=== PATIENT | male | born 1995 | race American Indian/Alaskan Native ===

== ENCOUNTER 2018-04-08 17:26 | Emergency (ER) | payer SELFPAY ==
--- NOTE | 2018-04-08 17:45 | Emergency Department Report ---
Chief Complaint: Urogenital-Male Stated Complaint: SHARP PAINS Time Seen by Provider: 04/08/18 17:42 - HPI History of Present Illness: Pt states he was having rough intercourse 6 months ago and feels like it bent when he was entering the vaginal canal which caused immediate pain for the patient He states he has noticed a curvature to the penis since the incident no difficulty urinating having difficulty getting an erection and maintaining an erection since the inc ident he denies any discharge or urinary sx MSE complete MSE screening note: Focused history and physical exam performed. ED Disposition for MSE Condition: Stable
--- NOTE | 2018-04-08 20:06 | Emergency Department Report ---
ED Male HPI - General Chief complaint: Urogenital-Male Stated complaint: SHARP PAINS Time Seen by Provider: 04/08/18 17:42 Source: patient Mode of arrival: Ambulatory Limitations: No Limitations - History of Present Illness Initial comments: 22-year-old [place] male intima department complaining of a 6-12 month history of erectile dysfunction issues not been able to sustain a 4 erection for any length of time and also having an abnormally shaped penile and is able to obtain a partial erection. He states that this happened after he was having vigorous sex with the female on top states that she came down, causing his penis to begin in a very with an extremely painful position. He states right at That time it lost all of its integrity and has not yet been able to 2 regain his usual form to the point to where it is impairing his sexual activity. States this is start taking a toll on him mentally and emotionally 6 some assistance on correcting this problem. He has not tried any oral treatments or hormonal replacement therapy and is not follow-up with a urologist for any guidance. - Related Data Previous Rx's Medication Instructions Recorded Last Taken Type Sildenafil Citrate [Viagra] 100 mg PO ONCE #1 tablet 04/08/18 Unknown Rx Allergies Allergy/AdvReac Type Severity Reaction Status Date / Time diphenhydramine Allergy Hives Verified 04/08/18 17:27 [From [facility]] ED Review of Systems ROS: Stated complaint: SHARP PAINS Other details as noted in HPI Constitutional: denies: chills, fever Eyes: denies: eye pain, eye discharge, vision change ENT: denies: ear pain, throat pain Respiratory: denies: cough, shortness of breath, wheezing Cardiovascular: denies: chest pain, palpitations Endocrine: no symptoms reported Gastrointestinal: denies: abdominal pain, nausea, diarrhea Genitourinary: denies: urgency, dysuria Musculoskeletal: denies: back pain, joint swelling, arthralgia Skin: denies: rash, lesions Neurological: denies: headache, weakness, paresthesias Psychiatric: denies: anxiety, depression Hematological/Lymphatic: denies: easy bleeding, easy bruising ED Past Medical Hx - Past Medical History Previous Medical History?: No - Surgical History Past Surgical History?: No - Social History Smoking Status: Never Smoker Substance Use Type: None - Medications Home Medications: Home Medications Medication Instructions Recorded Confirmed Last Taken Type Sildenafil Citrate [Viagra] 100 mg PO ONCE #1 tablet 04/08/18 Unknown Rx ED Physical Exam - General Limitations: No Limitations General appearance: alert, in no apparent distress - Head Head exam: Present: atraumatic, normocephalic - Eye Eye exam: Present: normal appearance, PERRL, EOMI Pupils: Present: normal accommodation - ENT ENT exam: Present: mucous membranes moist - Neck Neck exam: Present: normal inspection - Respiratory Respiratory exam: Present: normal lung sounds bilaterally. Absent: respiratory distress - Cardiovascular Cardiovascular Exam: Present: regular rate, normal rhythm. Absent: systolic murmur, diastolic murmur, rubs, gallop - GI/Abdominal GI/Abdominal exam: Present: soft, normal bowel sounds - Rectal Rectal exam: Present: deferred - Extremities Exam Extremities exam: Present: normal inspection - Back Exam Back exam: Present: normal inspection - Neurological Exam Neurological exam: Present: alert, oriented X3 - Psychiatric Psychiatric exam: Present: normal affect, normal mood - Skin Skin exam: Present: warm, dry, intact, normal color. Absent: rash ED Course Vital Signs 04/08/18 17:43 Temperature 97.9 F Pulse Rate 88 Respiratory 16 Rate Blood Pressure 132/81 O2 Sat by Pulse 98 Oximetry Critical care attestation.: If time is entered above; I have spent that time in minutes in the direct care of this critically ill patient, excluding procedure time. ED Disposition Clinical Impression: Erectile disorder, generalized, mild Disposition: DC-01 TO HOME OR SELFCARE Is pt being admited?: No Does the pt Need Aspirin: No Condition: Stable Instructions: Erectile Dysfunction (ED) Additional Instructions: Most men will experience problems getting or keeping an erection at some point during adulthood, but this is not always caused by a medical problem. However, some men do develop a medical condition called erectile dysfunction. Erectile dysfunction (ED) is a condition that occurs when the penis does not receive enough blood to produce an erection that is capable of having sexual intercourse. For men with ED, this happens repeatedly and affects a man's ability to sustain an active sex life. While erectile problems are widely thought to be an older man's issue, ED can affect younger men as well. It can be both frustrating and embarrassing for a man to admit to having ED. Few young men, especially those under the age of 40, want to acknowledge that they may have it. Although ED is not as common in young men, it can affect about 25 percent of men under the age of 40. However, only about 5 percent of all men under 40 have complete ED. Causes The causes of ED widely vary and can be caused by psychological, neurological, or lifestyle issues. ER can also be the result of side effects of particular medications. large man smoking Erectile dysfunction may be caused by obesity, a poor diet, a lack of exercise, or smoking. All men who experience symptoms of ED should talk to their doctor to identify the probable cause and to determine the best course of action in terms of treatment. Some of the causes for ED in young men include: performance anxiety when the man is too nervous to sustain an erection depression, schizophrenia, and other psychological disorders penile abnormalities, such as foreskin problems or curvature spinal cord injuries microvascular disease from diabetes nerve injuries hypogonadism, a condition where the body does not produce enough sexual hormones certain medications including some antidepressants multiple sclerosis Additionally, some young men might experience ED as result of factors that they have more control over. For example, young men can suffer from ED due to: obesity diabetes poor diet lack of exercise smoking excessive drinking relationship stress If ED is caused by any of these lifestyle factors, it may be possible for men to reduce or eliminate the symptoms through changes to their lifestyle and diet. However, even if a man thinks he knows the reason for his ED, he should see a doctor for a formal diagnosis and treatment. A doctor can also rule out any potentially harmful conditions that may cause ED. Symptoms There are three main symptoms of ED, which are relatively easy to identify. These symptoms are: inability to get an erection inability to maintain an erection long enough to have sexual intercourse trouble having an erection that is firm enough for sexual intercourse These symptoms may lead to a lack of sexual desire or a loss of interest in sex. Complications Man looking concerned in the bedroom Although the physical effects of ED may be mild, the emotional effects may be severe. These can include anxiety, stress, and low self-esteem. Physical complications of ED are generally mild. Men who experience ED do not typically experience any long-term health problems. However, ED may be a symptom of a more serious problem, such as heart disease. The most common complications include: an unsatisfactory sex life inability to get a partner While the physical complications may be mild, the emotional effects on a young man's quality of life may be more severe. Whether a man experiences all the potential complications or not depends largely on the individual and his own life experiences. Additional lifestyle complications that some men might experience include: stress or anxiety around sexual performance embarrassment or low self-esteem due to inability to perform relationship problems that possibly stem from stress or embarrassment Treatment Treatment for ED varies from person to person. Some men may find that improving their overall health may be enough to help the ED. Other people may require more treatment, such as relationship counseling, before they see any improvements. If lifestyle and relationship improvements are not sufficient to improve ED, doctors may recommend medications. There are also some natural treatments available that may be considered. When treating ED, a doctor or medical professional may suggest the following: Lifestyle changes: One of the first things a young man can do to potentially improve or eliminate ED is make positive choices that will also have an impact on the rest of his life. Some changes a man can consider include increasing exercise, eating a heart-healthy diet, quitting smoking, and drinking alcohol only in moderation. Where a man has relationship problems, seeking counseling may also be helpful. Natural treatments: Although natural remedies are increasingly available for sale over the counter, there is little scientific evidence to support their c laims of improving ED. These remedies may produce adverse side effects or react negatively with other medications a man is taking. Before trying any [id number] treatments, it is essential to consult a doctor. Medication: A doctor may prescribe a medication that stimulates blood flow to the penis, helping a man achieve an erection. There are many drugs available to choose from and each has its own set of side effects. Speaking to a doctor about the types of medication available is strongly recommended. Changes to current medications: If a doctor determines that ED is caused as a result of a man taking a certain medication, they may change or stop the problematic medication. No one should stop or alter their medication without talking to a doctor first, however. What to know about yoga for erectile dysfunction What to know about yoga for erectile dysfunction Click here to learn about yoga poses that can help with erectile dysfunction. READ NOW [place] Young men typically have a good chance of reversing ED. This can be achieved through lifestyle changes that generally improve overall health and by taking medication, or both. It is not uncommon for young men with ED to go back to experiencing a normal sex life if they follow the treatment and advice provided by their doctors. Prescriptions: Sildenafil Citrate [Viagra] 100 mg PO ONCE #1 tablet Referrals: NILTON SOLIS MD [Staff Physician] - 3-5 Days SYDNI RHOADES MD [Referring] - 3-5 Days KAREN PIZARRO MD [Referring] - 3-5 Days CONCHA PEDRAZA MD [Referring] - 3-5 Days
== END 2018-04-08 20:07 | disposition home or self-care (01) ==
LOC: ED 17:26
DX: N52.9 Male erectile dysfunction, unspecified (principal)
CPT/HCPCS: 99282